=== PATIENT | female | born 1995 | race Two or more races ===

== ENCOUNTER 2016-10-29 13:10 | Emergency (ER) | payer SELFPAY ==
--- NOTE | 2016-10-29 14:40 | ER Document Report ---
ED General - General Chief Complaint: Headache Stated Complaint: HEAD PAIN, NAUSEA,VOMITING,DIZZY Time Seen by Provider: 10/29/16 14:28 Mode of Arrival: Ambulatory Information source: Patient - 20-year-old female history of anemia presents with complaints of Notes: 20-year-old female presents with complaints of pulsatile headache for the past month. Patient notes initially it was when she was ambulating up the stairs, though she notes this pain is constant and feels a throbbing sensation near when she lays flat. Denies any family history of aneurysms TRAVEL OUTSIDE OF THE [place] IN LAST 30 DAYS: No - HPI Onset: Other Onset/Duration: Persistent Quality of pain: Throbbing Severity: Mild Pain Level: 1 Associated symptoms: Headache, Other Exacerbated by: Movement, Walking Relieved by: Denies Similar symptoms previously: No Recently seen / treated by doctor: No - Related Data Allergies/Adverse Reactions: honey Allergy (Verified 10/29/16 14:24) Past Medical History - Social History Smoking Status: Never Smoker Cigarette use (# per day): No Chew tobacco use (# tins/day): No Smoking Education Provided: No Drug Abuse: None Family History: Reviewed & Not Pertinent Patient has suicidal ideation: No Patient has homicidal ideation: No Renal/ Medical History: Denies: Hx Peritoneal Dialysis Surgical Hx: Negative Review of Systems - Review of Systems Notes: REVIEW OF SYSTEMS: CONSTITUTIONAL : Denies fever, chills, or sweats. Denies recent illness. EENT: Denies eye, ear, throat, or mouth pain or symptoms. Denies nasal or sinus congestion or discharge. Denies throat, tongue, or mouth swelling or difficulty swallowing. CARDIOVASCULAR: Denies chest pain. Denies palpitations or racing or irregular heart beat. Denies ankle edema. RESPIRATORY: Denies cough, cold, or chest congestion. Denies shortness of breath, difficulty breathing, or wheezing. GASTROINTESTINAL: Denies abdominal pain or distention. Denies nausea, vomiting , or diarrhea. Denies blood in vomitus, stools, or per rectum. Denies black, tarry stools. Denies constipation. GENITOURINARY: Denies difficulty urinating, painful urination, burning, frequency, blood in urine, or discharge. FEMALE GENITOURINARY: Denies vaginal bleeding, heavy or abnormal periods, irregular periods. Denies vaginal discharge or odor. MUSCULOSKELETAL: Denies back or neck pain or stiffness. Denies joint pain or swelling. SKIN: Denies rash, lesions or sores. HEMATOLOGIC : Denies easy bruising or bleeding. LYMPHATIC: Denies swollen, enlarged glands. NEUROLOGICAL: Admits a throbbing headache PHYSICAL EXAMINATION: GENERAL: Well-appearing, well-nourished and in no acute distress. HEAD: Atraumatic, normocephalic. EYES: Pupils equal round and reactive to light, extraocular movements intact, conjunctiva are normal. ENT: Nares patent, oropharynx clear without exudates. Moist mucous membranes. NECK: Normal range of motion, supple without lymphadenopathy LUNGS: Breath sounds clear to auscultation bilaterally and equal. No wheezes rales or rhonchi. HEART: Regular rate and rhythm without murmurs ABDOMEN: Soft, nontender, nondistended abdomen. No guarding, no rebound. No masses appreciated. Female : deferred Musculoskeletal: Normal range of motion, no pitting or edema. No cyanosis. NEUROLOGICAL: Cranial nerves grossly intact. Normal speech, normal gait. Normal sensory, motor exams PSYCH: Normal mood, normal affect. SKIN: Warm, Dry, normal turgor, no rashes or lesions noted. PSYCHIATRIC: Denies anxiety or stress. Denies depression, suicidal ideation, or homicidal ideation. ALL OTHER SYSTEMS REVIEWED AND NEGATIVE. Dictation was performed using [email or web address] voice recognition software Physical Exam - Vital signs Vitals: Temp Pulse Resp BP Pulse Ox 98.3 F 96 16 116/59 L 100 10/29/16 13:38 10/29/16 13:38 10/29/16 13:38 10/29/16 13:38 10/29/16 13:38 Course - Re-evaluation Re-evalutation: 10/29/16 14:40 Physical examination noted no acute life-threatening abnormalities, bruit is not noted Obvious concern for aneurysm, CTA is pending 10/29/16 16:31 pt is noted to be pancytopenic 10/29/16 16:[address] imaging, I did speak with Dr. Arana who requests 1 unit transfusion and patient to be given B12 orally at home 1000 mcg daily for 5 days then 1000 mcg a week and then 1000 mcg a month 10/29/16 17:28 Patient will be transfused and his ready for discharge. She will be given follow-up with hematology After performing a Medical Screening Examination, I estimate there is LOW risk for ACUTE GLAUCOMA, TEMPORAL ARTERITIS, MENINGITIS, INCRANIAL HEMORRHAGE, or ISCHEMIC STROKE thus I consider the discharge disposition reasonable. I have reevaluated this patient multiple times and no significant life threatening changes are noted. The patient and I have discussed the diagnosis and risks, and we agree with discharging home with close follow-up with the understanding that symptoms and presentations can change. We also discussed returning to the Emergency Department immediately if new or worsening symptoms occur. We have discussed the symptoms which are most concerning (e.g., changing or worsening symptoms, new numbness or weakness, vomiting, fever) that necessitate immediate return. - Vital Signs Vital signs: Temp Pulse Resp BP Pulse Ox 98.3 F 96 16 116/59 L 100 10/29/16 13:38 10/29/16 13:38 10/29/16 13:38 10/29/16 13:38 10/29/16 13:38 - Laboratory Result Diagrams: 10/29/16 15:25 10/29/16 15:25 Laboratory results interpreted by me: 10/29/16 10/29/16 15:25 16:42 WBC 3.4 L RBC 1.67 L Hgb 6.5 L Hct 18.9 L MCV 113 H MCH 39.1 H RDW 15.0 H Plt Count 130 L Seg Neuts % (Manual) 4 L Lymphocytes % (Manual) 93 H Monocytes % (Manual) 0 L Abs Neuts (Manual) 0.1 L Abs Monocytes (Manual) 0.0 L Crossmatch See Detail Discharge - Discharge Clinical Impression: Pancytopenia, Anemia requiring transfusions Condition: Stable Disposition: HOME, SELF-CARE Instructions: Anemia ([facility]), Anemia, Iron Deficiency ([facility]) Additional Instructions: Please take 1000mcg of B12 daily for 5 days, then once a week , then once a month Follow up with your physician tomorrow for further care or return to the ED IMMEDIATELY if symptoms worsen or new concerns occur. If you cannot afford to follow up with your primary care physician a list of low cost clinics have been provided at the end of your discharge papers as well. Referrals: EUGENE MCCOY MD [ACTIVE STAFF] - Follow up tomorrow
[2016-10-29 15:47] LABS: HEMATOCRIT 18.9 % (36.0-47.0); HGB HCT DIFFERENCE 0.6; MEAN CORPUSCULAR HEMOGLOBIN 39.1 pg (27.0-33.4); MEAN CORPUSCULAR HGB CONC 34.6 g/dL (32.0-36.0); RED BLOOD COUNT 1.67 10^6/uL (3.72-5.28); WHITE BLOOD COUNT 3.4 10^3/uL (4.0-10.5)
[2016-10-29 15:55] LABS: ALANINE AMINOTRANSFERASE 29 U/L (9-52); ALBUMIN 4.3 g/dL (3.5-5.0); ALKALINE PHOSPHATASE 39 U/L (38-126); ANION GAP 12 (5-19); ASPARTATE AMINO TRANSFERASE 19 U/L (14-36); BILIRUBIN,DIRECT 0.2 mg/dL (0.0-0.4); BILIRUBIN,TOTAL 0.4 mg/dL (0.2-1.3); BLOOD UREA NITROGEN 16 mg/dL (7-20); CALCIUM 9.2 mg/dL (8.4-10.2); CARBON DIOXIDE 24 mmol/L (22-30); CHLORIDE 105 mmol/L (98-107); CREATININE RESULT 0.73 mg/dL (0.52-1.25); GLUCOSE 79 mg/dL (75-110); POTASSIUM 4.2 mmol/L (3.6-5.0); SODIUM 141.3 mmol/L (137-145); TOTAL PROTEIN 7.9 g/dL (6.3-8.2)
[2016-10-29 16:09] LABS: HEMOGLOBIN 6.5 g/dL (12.0-15.5)
[2016-10-29 16:10] LABS: MEAN CORPUSCULAR VOLUME 113 fl (80-97)
[2016-10-29 16:16] LABS: BASOPHILS % (MANUAL) 0 % (0-2); EOSINOPHILS % (MANUAL) 0 % (0-6); NUCLEATED RED BLOOD CELLS 1 /100 WBC (0); TOTAL CELLS COUNTED 100
[2016-10-29 16:23] LABS: ANISOCYTOSIS SLIGHT; POLYCHROMASIA SLIGHT; ROULEAUX SLIGHT
[2016-10-29 16:24] LABS: LYMPHOCYTES % (MANUAL) 93 % (13-45)
[2016-10-29] MEDS ORDERED: NORMAL SALINE 250 ML IV PRN ×2 (16:33)
[2016-10-29 22:32] VITALS: BP 109/54
== END 2016-10-29 22:32 | disposition home or self-care (01) ==
LOC: ER 13:10
DX: D61.818 Other pancytopenia (principal); D64.9 Anemia, unspecified; R51 Headache; R11.2 Nausea with vomiting, unspecified; R42 Dizziness and giddiness
CPT/HCPCS: 99283; 86900; 86901; 36415; 36430; 86850; 84703; 85025; 80053; 86920; P9016